=== PATIENT | female | born 1975 | race Caucasian/White ===

== ENCOUNTER 2023-11-28 15:13 | Emergency (ER) | payer OTHER ==
[2023-11-28 15:29] VITALS: BP 113/79; PULSE 100; RESP 17; TEMP 97.9; BMI 22.6
[2023-11-28 16:50] LABS: METHADONE, UR NEGATIVE (NEGATIVE); PHENCYCLIDINE,URINE NEGATIVE (NEGATIVE); URINE BARBITURATES NEGATIVE (NEGATIVE)
[2023-11-28 16:51] LABS: COCAINE, UR NEGATIVE (NEGATIVE); URINE AMPHETAMINES NEGATIVE (NEGATIVE)
[2023-11-28 16:56] LABS: OPIATES, URI NEGATIVE (NEGATIVE); URINE BENZODIAZEPINES POSITIVE (NEGATIVE)
[2023-11-28] MEDS ORDERED: chlordiazePOXIDE HCL 10 MG CAPSULE PO ONE (17:30)
[2023-11-28] MEDS ORDERED: chlordiazePOXIDE HCL 25 MG CAPSULE ONE (17:34)
[2023-11-28] MEDS: chlordiazePOXIDE HCL 25 MG CAPSULE PO ONE (17:59)
== END 2023-11-28 20:32 | disposition home or self-care (01) ==
LOC: JER 15:13
DX: S22.31XA Fracture of one rib, right side, initial encounter for closed fracture (principal); F10.129 Alcohol abuse with intoxication, unspecified; W10.9XXA Fall (on) (from) unspecified stairs and steps, initial encounter
CPT/HCPCS: 70450-TC; 71046-TC-FY; 72125-TC; 72170-TC-FY; 73030-TC-RT-FY; 73060-TC-RT-FY; 73070-TC-RT-FY; 80307; 99285-25

== ENCOUNTER 2024-01-28 12:17 | Emergency (ER) | payer OTHER ==
[2024-01-28 12:30] VITALS: BP 130/90; PULSE 101; RESP 18; TEMP 98.4; BMI 22.3
[2024-01-28] MEDS ORDERED: IBUPROFEN 600 MG TABLET (FP) PO ONE (13:54)
[2024-01-28] MEDS: IBUPROFEN 600 MG TABLET (FP) PO ONE (13:55)
[2024-01-28 15:48] LABS: HIV INTERPRETATION NEGATIVE (NEGATIVE)
== END 2024-01-28 14:57 | disposition home or self-care (01) ==
LOC: JERFT 12:17
DX: S50.01XA Contusion of right elbow, initial encounter (principal); W01.0XXA Fall on same level from slipping, tripping and stumbling without subsequent striking against object, initial encounter
CPT/HCPCS: 36415; 73070-TC-RT-FY; 86803; 87389; 99284-25

== ENCOUNTER 2024-04-14 15:27 | Inpatient (IN) | payer OTHER ==
[2024-04-14] MEDS ORDERED: ONDANSETRON 4 MG/2 ML VIAL ONE ×2 (16:09→19:57)
[2024-04-14] MEDS ORDERED: diazePAM CARPU-JECT 10 MG/2 ML DISP.SYRIN ONE (16:26)
[2024-04-14] MEDS ORDERED: FAMOTIDINE 20 MG/50 ML IVPB 20 MG/50 ML MG IVPB ONE (16:27)
[2024-04-14] MEDS ORDERED: ACETAMINOPHEN INJECTION 100 ML ONE (16:27)
[2024-04-14 16:31] LABS: HEMATOCRIT 40.5 % (32.4-45.2); HEMOGLOBIN 13.9 GM/dL (10.7-15.3); MCH 36.2 pg (25.7-33.7); MCHC 34.3 g/dl (32.0-36.0); MEAN CELL VOLUME 105.3 fl (80-96); MEAN PLT VOLUME 8.9 fl (7.5-11.1); PLATELET COUNT 122 10^3/uL (134-434); RBC 3.84 M/mm3 (3.60-5.2); WHITE BLOOD COUNT 8.9 K/mm3 (4.0-10.0)
[2024-04-14] MEDS: SODIUM CHLORIDE 0.9% 500 ML INFUS.BAG IV ONE (16:35)
[2024-04-14] MEDS: ACETAMINOPHEN 1000 MG/100 ML BAG IVPB ONE (16:35)
[2024-04-14 16:36] LABS: ADD RBC MORPHOLOGY YES
[2024-04-14] MEDS: ONDANSETRON 4 MG/2 ML VIAL IVPUSH ONE ×2 (16:36→19:55)
[2024-04-14] MEDS: FAMOTIDINE 20 MG/50 ML IVPB 20 MG/50 ML MG IVPB ONE (16:36)
[2024-04-14] MEDS: diazePAM CARPU-JECT 10 MG/2 ML DISP.SYRIN IVPUSH ONE (16:36)
[2024-04-14 16:55] LABS: POTASSIUM 3.2 mmol/L (3.5-5.1)
[2024-04-14 16:57] LABS: CALCIUM 8.5 mg/dL (8.5-10.1)
[2024-04-14 16:58] LABS: ALBUMIN 3.8 g/dl (3.4-5.0); BLOOD UREA NITROGEN 13.5 mg/dL (7-18)
[2024-04-14 17:01] LABS: CREATININE 0.7 mg/dL (0.55-1.3)
[2024-04-14 17:02] LABS: TOT PROT 6.9 g/dl (6.4-8.2)
[2024-04-14 17:37] LABS: ANISOCYTOSIS 0; MACROCYTOSIS 0
[2024-04-14] MEDS ORDERED: KCL 10 MEQ IVPB 10 MEQ/100 ML INFUS.BAG IVPB ONE ×3 (18:02→22:13)
[2024-04-14] MEDS: KCL 10 MEQ IVPB 10 MEQ/100 ML INFUS.BAG IVPB SCH ×2 (18:26→23:28)
[2024-04-14] MEDS: SODIUM CHLORIDE 1,000 ML IV ONE (18:37)
[2024-04-14] MEDS ORDERED: SODIUM CHLORIDE 1,000 ML IV SCH (18:45)
[2024-04-14 18:49] LABS: POTASSIUM 3.1 mmol/L (3.5-5.1)
[2024-04-14 18:51] LABS: BLOOD UREA NITROGEN 12.2 mg/dL (7-18); MAGNESIUM 1.2 mg/dL (1.8-2.4)
[2024-04-14 18:54] LABS: CREATININE 0.7 mg/dL (0.55-1.3)
[2024-04-14] MEDS ORDERED: MAGNESIUM SULFATE IN WATER 2 GM/50 ML IVPB IVPB ONE (20:15)
[2024-04-14] MEDS ORDERED: LORazepam 2 MG/ML SDV VIAL ONE (20:19)
[2024-04-14] MEDS: MAGNESIUM SULFATE IN WATER 2 GM/50 ML IVPB IVPB ONE (20:45)
[2024-04-14] MEDS ORDERED: KCL 10 MEQ IVPB 30 MEQ/300 ML INFUS.BAG IVPB ONE (23:22)
[2024-04-14] MEDS ORDERED: THIAMINE HCL 200 MG/2 ML VIAL ONE (23:22)
[2024-04-14] MEDS: THIAMINE HCL 200 MG/2 ML VIAL IVPB SCH (23:32)
[2024-04-15 00:06] LABS: PHOSPHOROUS 3.7 mg/dL (2.5-4.9)
[2024-04-15 01:08] LABS: HIV INTERPRETATION NEGATIVE (NEGATIVE)
[2024-04-15] MEDS: ONDANSETRON 4 MG/2 ML VIAL IVPUSH ONE (01:42)
[2024-04-15] MEDS: MAGNESIUM SULFATE IN WATER 2 GM/50 ML IVPB IVPB ONE (03:23)
[2024-04-15] MEDS: LACTATED RINGERS SOLUTION 1,000 ML/1,000 ML INFUS.BAG IV SCH ×2 (03:35→13:07)
[2024-04-15 07:38] LABS: BASO % 0.1 % (0-2.0); EOS % 0.1 % (0-4.5); HEMATOCRIT 34.9 % (32.4-45.2); HEMOGLOBIN 11.7 GM/dL (10.7-15.3); LYMPH % 10.4 % (8-40); MCH 36.2 pg (25.7-33.7); MCHC 33.7 g/dl (32.0-36.0); MEAN CELL VOLUME 107.4 fl (80-96); MEAN PLT VOLUME 9.2 fl (7.5-11.1); MONO % 5.9 % (3.8-10.2); NEUT % 83.5 % (42.8-82.8); PLATELET COUNT 80 10^3/uL (134-434); RBC 3.25 M/mm3 (3.60-5.2); RDW 14.2 % (11.6-15.6); WHITE BLOOD COUNT 4.8 K/mm3 (4.0-10.0)
[2024-04-15 08:06] LABS: CHLORIDE 89 mmol/L (98-107); SODIUM 127 mmol/L (136-145)
[2024-04-15 08:19] LABS: POTASSIUM 2.8 mmol/L (3.5-5.1)
[2024-04-15 08:26] LABS: CALCIUM 8.2 mg/dL (8.5-10.1)
[2024-04-15 08:27] LABS: ALBUMIN 3.3 g/dl (3.4-5.0); ANION GAP 13 mmol/L (4-13); BLOOD UREA NITROGEN 8.1 mg/dL (7-18); CO2 25 mmol/L (21-32); GLUCOSE,RANDOM 91 mg/dL (74-106); MAGNESIUM 3.2 mg/dL (1.8-2.4)
[2024-04-15 08:29] LABS: PHOSPHOROUS 2.2 mg/dL (2.5-4.9); SGPT/ALT 31 U/L (13-61)
[2024-04-15 08:30] LABS: CREATININE 0.6 mg/dL (0.55-1.3); SGOT/AST 258 U/L (15-37)
[2024-04-15 08:31] LABS: BILIRUBIN,TOTAL 1.3 mg/dL (0.2-1); TOT PROT 5.9 g/dl (6.4-8.2)
[2024-04-15 08:32] LABS: ALK PHOS 106 U/L (45-117)
[2024-04-15] MEDS: METOCLOPRAMIDE HCL 10 MG TABLET (FP) PO SCH ×2 (09:44→21:27)
[2024-04-15] MEDS: FOLIC ACID 1 MG TABLET (FP) PO SCH (09:44)
[2024-04-15] MEDS: ENOXAPARIN NA (PORCINE) 40 MG/0.4 ML DISP.SYRIN SQ SCH (09:44)
[2024-04-15] MEDS: POTASSIUM CHLORIDE TABS 20 MEQ TABLET.ER (FP) PO ONE (10:46)
[2024-04-15] MEDS: KCL 10 MEQ IVPB 10 MEQ/100 ML INFUS.BAG IVPB SCH ×2 (10:46→16:42)
[2024-04-15] MEDS ORDERED: LORazepam 1 MG TABLET PO PRN ×2 (11:50→17:17)
[2024-04-15 12:19] LABS: BILIRUBIN,DIRECT 0.5 mg/dL (0.0-0.2)
[2024-04-15 12:20] LABS: CHOLESTEROL 171 mg/dL (50-200); LDL CHOLESTEROL (ONLY SJRH) 77 mg/dL (5-100)
[2024-04-15 12:22] LABS: HDL CHOLESTEROL 67 mg/dL (40-60)
[2024-04-15] MEDS: LORazepam 1 MG TABLET PO SCH (13:03)
[2024-04-15 13:34] VITALS: BMI 22.8
[2024-04-15 15:05] LABS: CHLORIDE 89 mmol/L (98-107); SODIUM 127 mmol/L (136-145)
[2024-04-15 15:08] LABS: ALBUMIN 3.8 g/dl (3.4-5.0); CALCIUM 8.4 mg/dL (8.5-10.1); CO2 26 mmol/L (21-32); GLUCOSE,RANDOM 137 mg/dL (74-106)
[2024-04-15 15:11] LABS: SGOT/AST 254 U/L (15-37); SGPT/ALT 33 U/L (13-61)
[2024-04-15 15:12] LABS: CREATININE 0.9 mg/dL (0.55-1.3)
[2024-04-15 15:13] LABS: BILIRUBIN,TOTAL 1.2 mg/dL (0.2-1); TOT PROT 6.5 g/dl (6.4-8.2)
[2024-04-15 15:14] LABS: ALK PHOS 119 U/L (45-117)
[2024-04-15 15:30] LABS: ANION GAP 12 mmol/L (4-13); POTASSIUM 2.9 mmol/L (3.5-5.1)
[2024-04-15] MEDS ORDERED: LORazepam 2 MG/ML SDV VIAL IVPUSH PRN (17:17)
[2024-04-15] MEDS: POTASSIUM CHLORIDE ORAL LIQUID 20 MEQ/15 ML PO ONE (18:37)
[2024-04-15] MEDS: SERTRALINE HCL 25 MG TABLET (FP) PO SCH (21:39)
[2024-04-16 08:34] LABS: HEMATOCRIT 36.1 % (32.4-45.2); HEMOGLOBIN 12.3 GM/dL (10.7-15.3); MCH 36.8 pg (25.7-33.7); MEAN CELL VOLUME 108.4 fl (80-96); MEAN PLT VOLUME 9.6 fl (7.5-11.1); PLATELET COUNT 87 10^3/uL (134-434); RBC 3.33 M/mm3 (3.60-5.2); RDW 14.1 % (11.6-15.6); WHITE BLOOD COUNT 2.6 K/mm3 (4.0-10.0)
[2024-04-16 08:48] LABS: CHLORIDE 98 mmol/L (98-107); POTASSIUM 3.2 mmol/L (3.5-5.1); SODIUM 134 mmol/L (136-145)
[2024-04-16 09:02] LABS: ALBUMIN 3.3 g/dl (3.4-5.0); ANION GAP 9 mmol/L (4-13); CALCIUM 8.2 mg/dL (8.5-10.1); CO2 27 mmol/L (21-32); SGOT/AST 216 U/L (15-37)
[2024-04-16 09:03] LABS: GLUCOSE,RANDOM 91 mg/dL (74-106); MAGNESIUM 2.1 mg/dL (1.8-2.4)
[2024-04-16 09:05] LABS: ALK PHOS 106 U/L (45-117); SGPT/ALT 28 U/L (13-61)
[2024-04-16 09:06] LABS: CREATININE 0.6 mg/dL (0.55-1.3)
[2024-04-16 09:07] LABS: TOT PROT 5.8 g/dl (6.4-8.2)
[2024-04-16 09:16] LABS: BILIRUBIN,TOTAL 1.2 mg/dL (0.2-1); BLOOD UREA NITROGEN 2.1 mg/dL (7-18)
[2024-04-16] MEDS: POTASSIUM CHLORIDE TABS 20 MEQ TABLET.ER (FP) PO ONE (09:35)
[2024-04-16 10:20] LABS: ANISOCYTOSIS 0; MACROCYTOSIS 1+
[2024-04-16 20:50] LABS: POTASSIUM 3.3 mmol/L (3.5-5.1)
[2024-04-16 20:51] LABS: MAGNESIUM 1.7 mg/dL (1.8-2.4)
[2024-04-16] MEDS: POTASSIUM CHLORIDE ORAL LIQUID 20 MEQ/15 ML PO ONE (21:33)
[2024-04-16] MEDS: MAG HYDROX/AL HYDROX/SIMETH 30 ML UNIT-DOSE CUP PO ONE (21:33)
[2024-04-17] MEDS: LORazepam 1 MG TABLET PO SCH (05:42)
[2024-04-17 06:47] LABS: BASO % 0.4 % (0-2.0); EOS % 2.8 % (0-4.5); HEMATOCRIT 35.3 % (32.4-45.2); HEMOGLOBIN 11.9 GM/dL (10.7-15.3); LYMPH % 28.9 % (8-40); MCH 36.8 pg (25.7-33.7); MCHC 33.7 g/dl (32.0-36.0); MEAN CELL VOLUME 109.3 fl (80-96); MEAN PLT VOLUME 9.4 fl (7.5-11.1); MONO % 7.6 % (3.8-10.2); NEUT % 60.3 % (42.8-82.8); PLATELET COUNT 89 10^3/uL (134-434); RBC 3.23 M/mm3 (3.60-5.2); RDW 14.3 % (11.6-15.6); WHITE BLOOD COUNT 2.9 K/mm3 (4.0-10.0)
[2024-04-17 06:57] LABS: INR 0.88 (0.83-1.09); PROTHROMBIN TIME (PATIENT) 10.2 SEC (9.7-13.0)
[2024-04-17 07:09] LABS: POTASSIUM 3.7 mmol/L (3.5-5.1)
[2024-04-17 07:12] LABS: ALBUMIN 3.1 g/dl (3.4-5.0); CALCIUM 8.3 mg/dL (8.5-10.1)
[2024-04-17 07:13] LABS: BLOOD UREA NITROGEN 3.2 mg/dL (7-18); MAGNESIUM 1.6 mg/dL (1.8-2.4)
[2024-04-17 07:15] LABS: CREATININE 0.5 mg/dL (0.55-1.3)
[2024-04-17 07:16] LABS: PHOSPHOROUS 2.8 mg/dL (2.5-4.9)
[2024-04-17 07:17] LABS: BILIRUBIN,TOTAL 0.9 mg/dL (0.2-1); TOT PROT 5.5 g/dl (6.4-8.2)
[2024-04-17] MEDS: ACETAMINOPHEN 1000 MG/100 ML BAG IVPB ONE (15:20)
[2024-04-17] MEDS: POTASSIUM CHLORIDE ORAL LIQUID 20 MEQ/15 ML PO ONE (15:37)
[2024-04-17] MEDS: MAGNESIUM 2GM/50ML STERILE WATER IVPB IVPB ONE (15:37)
[2024-04-17 19:07] LABS: GLIADIN ANTIBODY IGA 53 units (0-19); GLIADIN ANTIBODY IGG 2 units (0-19); TRANSGLUTAMINASE IGG < 2 U/mL (0-5)
[2024-04-18] MEDS ORDERED: LORazepam 0.5 MG TABLET PO PRN
[2024-04-18] MEDS: TRIMETHOBENZAMIDE HCL 200MG/2ML INJ IM ONE (05:49)
[2024-04-18] MEDS: LORazepam 0.5 MG TABLET PO SCH (06:00)
[2024-04-18 07:34] LABS: BASO % 0.5 % (0-2.0); EOS % 2.7 % (0-4.5); HEMATOCRIT 34.2 % (32.4-45.2); HEMOGLOBIN 11.4 GM/dL (10.7-15.3); MCH 36.5 pg (25.7-33.7); MCHC 33.2 g/dl (32.0-36.0); MEAN CELL VOLUME 110.1 fl (80-96); MEAN PLT VOLUME 8.9 fl (7.5-11.1); MONO % 11.5 % (3.8-10.2); NEUT % 51.3 % (42.8-82.8); PLATELET COUNT 114 10^3/uL (134-434); RBC 3.11 M/mm3 (3.60-5.2); RDW 14.8 % (11.6-15.6); WHITE BLOOD COUNT 2.4 K/mm3 (4.0-10.0)
[2024-04-18 07:55] LABS: POTASSIUM 3.9 mmol/L (3.5-5.1)
[2024-04-18 07:57] LABS: CALCIUM 8.4 mg/dL (8.5-10.1)
[2024-04-18 07:58] LABS: BLOOD UREA NITROGEN 4.4 mg/dL (7-18); MAGNESIUM 1.9 mg/dL (1.8-2.4)
[2024-04-18 08:01] LABS: CREATININE 0.5 mg/dL (0.55-1.3); PHOSPHOROUS 3.4 mg/dL (2.5-4.9)
[2024-04-18 08:02] LABS: BILIRUBIN,TOTAL 0.4 mg/dL (0.2-1); TOT PROT 5.7 g/dl (6.4-8.2)
[2024-04-18 11:58] LABS: ANISOCYTOSIS 1+; MACROCYTOSIS 2+
[2024-04-18] MEDS: BISACODYL 5 MG TABLET.DR (FP) PO ONE (17:12)
[2024-04-18] MEDS: PEG 3350/NA SULF BICARB CL/KCL 4000 ML SOLN.RECON PO ONE (17:52)
[2024-04-19] MEDS: LORazepam 0.5 MG TABLET PO ONE (05:45)
[2024-04-19 13:36] LABS: HEMATOCRIT 33.6 % (32.4-45.2); HEMOGLOBIN 11.3 GM/dL (10.7-15.3); MCHC 33.6 g/dl (32.0-36.0); MEAN PLT VOLUME 8.1 fl (7.5-11.1); PLATELET COUNT 159 10^3/uL (134-434); RBC 3.05 M/mm3 (3.60-5.2); WHITE BLOOD COUNT 2.7 K/mm3 (4.0-10.0)
[2024-04-19 14:04] LABS: POTASSIUM 3.7 mmol/L (3.5-5.1)
[2024-04-19 14:05] LABS: BLOOD UREA NITROGEN 4.4 mg/dL (7-18); CALCIUM 8.7 mg/dL (8.5-10.1)
[2024-04-19 14:06] LABS: ALBUMIN 2.9 g/dl (3.4-5.0)
[2024-04-19 14:08] LABS: MAGNESIUM 1.7 mg/dL (1.8-2.4)
[2024-04-19 14:09] LABS: CREATININE 0.5 mg/dL (0.55-1.3); PHOSPHOROUS 4.5 mg/dL (2.5-4.9)
[2024-04-19 14:11] LABS: BILIRUBIN,TOTAL 0.4 mg/dL (0.2-1); TOT PROT 5.4 g/dl (6.4-8.2)
[2024-04-19] MEDS: MAGNESIUM SULF 50% (8.12 MEQ/2 ML-1 GM VIAL) IVPB ONE (15:51)
[2024-04-20] MEDS: METOCLOPRAMIDE HCL INJECTION 10 MG/2 ML VIAL IVPUSH ONE (00:06)
[2024-04-20 07:39] LABS: HEMOGLOBIN 11.4 GM/dL (10.7-15.3); MCH 36.9 pg (25.7-33.7); MCHC 33.6 g/dl (32.0-36.0); MEAN CELL VOLUME 109.8 fl (80-96); MEAN PLT VOLUME 8.2 fl (7.5-11.1); PLATELET COUNT 204 10^3/uL (134-434); RBC 3.09 M/mm3 (3.60-5.2); RDW 15.1 % (11.6-15.6); WHITE BLOOD COUNT 6.1 K/mm3 (4.0-10.0)
[2024-04-20 08:01] LABS: POTASSIUM 4.1 mmol/L (3.5-5.1)
[2024-04-20 08:08] LABS: BLOOD UREA NITROGEN 6.2 mg/dL (7-18); MAGNESIUM 2.1 mg/dL (1.8-2.4)
[2024-04-20 08:11] LABS: CREATININE 0.6 mg/dL (0.55-1.3)
[2024-04-20 08:12] LABS: BILIRUBIN,TOTAL 0.4 mg/dL (0.2-1); TOT PROT 5.9 g/dl (6.4-8.2)
[2024-04-20] MEDS: PANTOPRAZOLE 40 MG TABLET PO SCH (09:16)
[2024-04-20] MEDS: ONDANSETRON 4 MG/2 ML VIAL IVPUSH PRN (09:46)
[2024-04-20] MEDS ORDERED: ONDANSETRON 4 MG/2 ML VIAL IVPUSH PRN (18:14)
[2024-04-20] MEDS ORDERED: LORazepam 2 MG/ML SDV VIAL IVPUSH PRN (20:19)
[2024-04-20] MEDS ORDERED: ACETAMINOPHEN 325 MG TABLET (FP) PO ONE (20:29)
[2024-04-20] MEDS: LORazepam 2 MG/ML SDV VIAL IVPUSH ONE (20:36)
[2024-04-20] MEDS: LACTOBACILLUS ACIDOPHILUS 1 TABLET PO SCH ×2 (20:37→20:44)
[2024-04-20] MEDS: ACETAMINOPHEN 325 MG TABLET (FP) PO ONE (20:37)
[2024-04-20 22:47] LABS: PH,URINE 5.5 (5.0-8.0); URINE APPEARANCE CLEAR; URINE BILIRUBIN NEGATIVE (NEGATIVE); URINE COLOR YELLOW; URINE GLUCOSE (UA) 2+ (NEGATIVE); URINE KETONE TRACE (NEGATIVE); URINE LEUK ESTERASE NEGATIVE (NEGATIVE); URINE NITRITE NEGATIVE (NEGATIVE); URINE PROTEIN NEGATIVE (NEGATIVE)
[2024-04-20 22:54] LABS: COCAINE, UR NEGATIVE (NEGATIVE); OPIATES, URI NEGATIVE (NEGATIVE); URINE BARBITURATES NEGATIVE (NEGATIVE)
[2024-04-21 01:40] LABS: METHADONE, UR NEGATIVE (NEGATIVE); URINE AMPHETAMINES NEGATIVE (NEGATIVE)
[2024-04-21 01:41] LABS: PHENCYCLIDINE,URINE NEGATIVE (NEGATIVE); URINE BENZODIAZEPINES POSITIVE (NEGATIVE)
[2024-04-21 07:47] LABS: POTASSIUM 4.2 mmol/L (3.5-5.1)
[2024-04-21 07:49] LABS: HEMATOCRIT 32.2 % (32.4-45.2); HEMOGLOBIN 10.8 GM/dL (10.7-15.3); MCH 36.9 pg (25.7-33.7); MCHC 33.6 g/dl (32.0-36.0); MEAN CELL VOLUME 109.7 fl (80-96); MEAN PLT VOLUME 8.1 fl (7.5-11.1); PLATELET COUNT 236 10^3/uL (134-434); RBC 2.94 M/mm3 (3.60-5.2); RDW 15.1 % (11.6-15.6); WHITE BLOOD COUNT 5.7 K/mm3 (4.0-10.0)
[2024-04-21 08:04] LABS: CALCIUM 8.9 mg/dL (8.5-10.1)
[2024-04-21 08:06] LABS: BLOOD UREA NITROGEN 5.2 mg/dL (7-18); MAGNESIUM 2.1 mg/dL (1.8-2.4)
[2024-04-21 08:09] LABS: BILIRUBIN,TOTAL 0.4 mg/dL (0.2-1); CREATININE 0.5 mg/dL (0.55-1.3); PHOSPHOROUS 4.6 mg/dL (2.5-4.9)
[2024-04-21 08:10] LABS: TOT PROT 5.6 g/dl (6.4-8.2)
[2024-04-21] MEDS: ACETAMINOPHEN 500 MG TABLET (FP) PO ONE (12:28)
[2024-04-21] MEDS: LORazepam 1 MG TABLET PO ONE (13:35)
[2024-04-22 08:41] LABS: POTASSIUM 4.2 mmol/L (3.5-5.1)
[2024-04-22 08:58] LABS: CALCIUM 8.9 mg/dL (8.5-10.1)
[2024-04-22 08:59] LABS: ALBUMIN 2.9 g/dl (3.4-5.0); BLOOD UREA NITROGEN 8.6 mg/dL (7-18)
[2024-04-22 09:01] LABS: MAGNESIUM 1.9 mg/dL (1.8-2.4)
[2024-04-22 09:02] LABS: CREATININE 0.6 mg/dL (0.55-1.3)
[2024-04-22 09:04] LABS: BILIRUBIN,TOTAL 0.3 mg/dL (0.2-1); TOT PROT 5.8 g/dl (6.4-8.2)
[2024-04-22 09:15] LABS: HEMATOCRIT 34.8 % (32.4-45.2); HEMOGLOBIN 11.6 GM/dL (10.7-15.3); MCH 36.8 pg (25.7-33.7); MCHC 33.4 g/dl (32.0-36.0); MEAN PLT VOLUME 8.2 fl (7.5-11.1); PLATELET COUNT 255 10^3/uL (134-434); RBC 3.16 M/mm3 (3.60-5.2); WHITE BLOOD COUNT 4.1 K/mm3 (4.0-10.0)
[2024-04-22 12:21] VITALS: RESP 14
[2024-04-22 12:22] VITALS: BP 108/96; PULSE 92; TEMP 98.6
[2024-04-28 12:09] LABS: VASOACTIVE INTEST, POLYPEPTIDE 43.6 pg/mL (0.0-58.8)
== END 2024-04-22 12:30 | disposition home or self-care (01) | DRG 775 ==
LOC: JER 15:27 → JERBED 18:45 → J4W 04-15 00:56 → OBSVTOIN 04-15 09:34
PROVIDERS: ADMIT Internal Medicine; ATTEND Internal Medicine
PROC: 0DB98ZX Excision of Duodenum, Via Natural or Artificial Opening Endoscopic, Diagnostic (ICD-10-PCS; 2024-04-19)
PROC: 0DB68ZX Excision of Stomach, Via Natural or Artificial Opening Endoscopic, Diagnostic (ICD-10-PCS; 2024-04-19)
PROC: 0DB58ZX Excision of Esophagus, Via Natural or Artificial Opening Endoscopic, Diagnostic (ICD-10-PCS; 2024-04-19)
PROC: 0DBN8ZZ Excision of Sigmoid Colon, Via Natural or Artificial Opening Endoscopic (ICD-10-PCS; principal; 2024-04-19 13:30)
DX: F10.239 Alcohol dependence with withdrawal, unspecified (principal); K86.0 Alcohol-induced chronic pancreatitis; K70.40 Alcoholic hepatic failure without coma; E83.42 Hypomagnesemia; K29.90 Gastroduodenitis, unspecified, without bleeding; K25.9 Gastric ulcer, unspecified as acute or chronic, without hemorrhage or perforation; E87.1 Hypo-osmolality and hyponatremia; K21.9 Gastro-esophageal reflux disease without esophagitis; E87.6 Hypokalemia; R11.2 Nausea with vomiting, unspecified; K64.8 Other hemorrhoids; D12.5 Benign neoplasm of sigmoid colon; R56.9 Unspecified convulsions; F41.8 Other specified anxiety disorders; K52.9 Noninfective gastroenteritis and colitis, unspecified; R79.89 Other specified abnormal findings of blood chemistry; E43 Unspecified severe protein-calorie malnutrition; Z68.22 Body mass index [BMI] 22.0-22.9, adult
CPT/HCPCS: 36415; 70450-TC; 70551-TC; 71045-TC-FY; 74177-TC; 76705-TC; 80048; 80053; 80061; 80307; 81003; 82248; 82550; 82784; 82941; 83516; 83690; 83735; 83986; 84100; 84132; 84260; 84436; 84443; 84484; 84586; 84703; 84999; 85025; 85027; 85610; 86140; 86704; 86708; 86803; 87045; 87046; 87086; 87186; 87205; 87209; 87324; 87340; 87389; 87449; 87517; 88305-TC; 88342-TC; 93005; 93010; 94761; 99285-25; G0378; J0131; Q9967

== ENCOUNTER 2024-05-03 00:49 | Inpatient (IN) | payer OTHER ==
[2024-05-03 01:06] VITALS: BMI 21.1
[2024-05-03] MEDS ORDERED: IBUPROFEN 400 MG TABLET (FP) PO PRN (01:29)
[2024-05-03] MEDS ORDERED: ACETAMINOPHEN 325 MG TABLET (FP) PO PRN (01:29)
[2024-05-03] MEDS ORDERED: guaiFENesin 600 MG TABLET.ER (FP) PO PRN (01:29)
[2024-05-03] MEDS ORDERED: DICYCLOMINE HCL 10 MG CAPSULE PO PRN (01:29)
[2024-05-03] MEDS ORDERED: MAG HYDROX/AL HYDROX/SIMETH 30 ML UNIT-DOSE CUP PO PRN (01:29)
[2024-05-03] MEDS ORDERED: IBUPROFEN 600 MG TABLET (FP) PO PRN (01:29)
[2024-05-03] MEDS ORDERED: BENZONATATE 200 MG CAPSULE PO PRN (01:29)
[2024-05-03] MEDS ORDERED: BENZOCAINE/MENTHOL (CHLORASEPTIC ) LOZENGE MM PRN (01:29)
[2024-05-03] MEDS ORDERED: MAGNESIUM HYDROX 2400MG/30ML ORAL SUSPENSION 30 ML CUP PO PRN (01:29)
[2024-05-03] MEDS ORDERED: NICOTINE POLACRILEX 2 MG LOZENGE BC PRN (01:29)
[2024-05-03] MEDS ORDERED: NALOXONE (NARCAN) HCL 4 MG/0.1 ML SPRAY NS PRN (01:29)
[2024-05-03] MEDS ORDERED: POLYETHYLENE GLYCOL (HEALTHYLAX) 3350 17 GM PACKET PO PRN (01:29)
[2024-05-03] MEDS ORDERED: LOPERAMIDE HCL 2 MG CAPSULE PO PRN (01:29)
[2024-05-03] MEDS ORDERED: chlordiazePOXIDE HCL 25 MG CAPSULE ONE (02:21)
[2024-05-03] MEDS ORDERED: METHOCARBAMOL 500 MG TABLET ONE (02:21)
[2024-05-03] MEDS: METHOCARBAMOL 500 MG TABLET PO PRN (02:28)
[2024-05-03] MEDS: chlordiazePOXIDE HCL 25 MG CAPSULE PO PRN (02:28)
[2024-05-03] MEDS: chlordiazePOXIDE HCL 25 MG CAPSULE PO SCH (05:45)
[2024-05-03] MEDS ORDERED: levETIRAcetam 500 MG TABLET (FP) PO SCH (10:45)
[2024-05-03] MEDS: NICOTINE 14 MG/24 HOURS TOPICAL PATCH TD SCH (10:55)
[2024-05-03] MEDS: PRENATAL VITAMINS W/ FOLIC ACID TABLET (FP) PO SCH (10:55)
[2024-05-03 11:39] LABS: HEMOGLOBIN 12.6 GM/dL (10.7-15.3); MCH 37.6 pg (25.7-33.7); MCHC 34.9 g/dl (32.0-36.0); MEAN CELL VOLUME 107.6 fl (80-96); MEAN PLT VOLUME 8.3 fl (7.5-11.1); PLATELET COUNT 346 10^3/uL (134-434); RBC 3.34 M/mm3 (3.60-5.2); RDW 15.2 % (11.6-15.6); WHITE BLOOD COUNT 5.6 K/mm3 (4.0-10.0)
[2024-05-03] MEDS: PANTOPRAZOLE 40 MG TABLET PO SCH (11:40)
[2024-05-03] MEDS: levETIRAcetam 500 MG TABLET (FP) PO SCH (11:41)
[2024-05-03] MEDS: ONDANSETRON *ODT* 4 MG TABLET SL PRN (11:43)
[2024-05-03] MEDS: FOLIC ACID 1 MG TABLET (FP) PO SCH (11:43)
[2024-05-03] MEDS: NALTREXONE HCL 50 MG TABLET PO SCH (11:48)
[2024-05-03 12:22] LABS: CHLORIDE 102 mmol/L (98-107); POTASSIUM 4.4 mmol/L (3.5-5.1); SODIUM 137 mmol/L (136-145)
[2024-05-03 12:24] LABS: CALCIUM 9.4 mg/dL (8.5-10.1); GLUCOSE,RANDOM 94 mg/dL (74-106)
[2024-05-03 12:25] LABS: ALBUMIN 3.5 g/dl (3.4-5.0); ANION GAP 7 mmol/L (4-13); CO2 28 mmol/L (21-32)
[2024-05-03 12:27] LABS: CREATININE 0.7 mg/dL (0.55-1.3)
[2024-05-03 12:28] LABS: SGOT/AST 67 U/L (15-37); SGPT/ALT 30 U/L (13-61)
[2024-05-03 12:29] LABS: BILIRUBIN,TOTAL 0.3 mg/dL (0.2-1); TOT PROT 6.5 g/dl (6.4-8.2)
[2024-05-03 12:30] LABS: ALK PHOS 86 U/L (45-117)
[2024-05-03] MEDS: BISMUTH SUBSALICYLATE 524 MG/30 ML PO PRN (16:13)
[2024-05-03] MEDS ORDERED: MELATONIN 5 MG TABLETS PO SCH (22:00)
[2024-05-03] MEDS: SUVOREXANT 10 MG TABLET PO PRN (22:21)
[2024-05-03] MEDS: ATORVASTATIN CA 40 MG TABLET (FP) PO SCH (22:21)
[2024-05-03] MEDS: SERTRALINE HCL 50 MG TABLET (FP) PO SCH (22:21)
[2024-05-03] MEDS: THIAMINE 100 MG TABLET PO SCH (22:22)
[2024-05-03] MEDS: LACTOBACILLUS ACIDOPHILUS 1 TABLET PO SCH (22:22)
[2024-05-04] MEDS: chlordiazePOXIDE HCL 25 MG CAPSULE PO SCH (05:45)
[2024-05-04] MEDS: hydrOXYzine PAMOATE 25 MG CAPSULE (FP) PO PRN (10:32)
[2024-05-05] MEDS ORDERED: chlordiazePOXIDE HCL 10 MG CAPSULE PO PRN
[2024-05-05] MEDS: chlordiazePOXIDE HCL 10 MG CAPSULE PO SCH (05:32)
[2024-05-06] MEDS: chlordiazePOXIDE HCL 10 MG CAPSULE PO SCH (05:55)
[2024-05-06 06:53] VITALS: PULSE 90
[2024-05-06 10:30] VITALS: BP 115/76; RESP 18; TEMP 97.7
[2024-05-06] MEDS: NALOXONE (NYS OPIOID OVERDOSE PROGRAM) 4 MG/0.1 ML SPRAY NS SCH (11:05)
[2024-05-07] MEDS ORDERED: chlordiazePOXIDE HCL 10 MG CAPSULE PO ONE (05:00)
== END 2024-05-06 09:40 | disposition home or self-care (01) | DRG 775 ==
LOC: YASAS 00:49 → Y6N 02:43
PROVIDERS: ADMIT Allergy & Immunology; ATTEND Surgery
PROC: HZ2ZZZZ Detoxification Services for Substance Abuse Treatment (ICD-10-PCS; principal; 2024-05-03)
DX: F10.230 Alcohol dependence with withdrawal, uncomplicated (principal); F17.210 Nicotine dependence, cigarettes, uncomplicated; F10.282 Alcohol dependence with alcohol-induced sleep disorder; F10.280 Alcohol dependence with alcohol-induced anxiety disorder; F10.24 Alcohol dependence with alcohol-induced mood disorder; F32.A Depression, unspecified; E78.5 Hyperlipidemia, unspecified; K21.9 Gastro-esophageal reflux disease without esophagitis; K29.20 Alcoholic gastritis without bleeding; R19.7 Diarrhea, unspecified
CPT/HCPCS: 36415; 70450-TC; 80053; 80307; 81003; 83690; 84703; 85025; 85027; 86780; 99285-25; Q0162

== ENCOUNTER 2024-08-30 14:17 | Inpatient (IN) | payer OTHER ==
[2024-08-30 15:01] VITALS: BMI 24.3
[2024-08-30] MEDS ORDERED: MAG HYDROX/AL HYDROX/SIMETH 30 ML UNIT-DOSE CUP PO PRN (16:17)
[2024-08-30] MEDS ORDERED: DICYCLOMINE HCL 10 MG CAPSULE PO PRN (16:17)
[2024-08-30] MEDS ORDERED: IBUPROFEN 600 MG TABLET (FP) PO PRN (16:17)
[2024-08-30] MEDS ORDERED: ACETAMINOPHEN 325 MG TABLET (FP) PO PRN (16:17)
[2024-08-30] MEDS ORDERED: METHOCARBAMOL 500 MG TABLET PO PRN (16:17)
[2024-08-30] MEDS ORDERED: BENZONATATE 200 MG CAPSULE PO PRN (16:17)
[2024-08-30] MEDS ORDERED: BISMUTH SUBSALICYLATE 524 MG/30 ML PO PRN (16:17)
[2024-08-30] MEDS ORDERED: MAGNESIUM HYDROX 2400MG/30ML ORAL SUSPENSION 30 ML CUP PO PRN (16:17)
[2024-08-30] MEDS ORDERED: hydrOXYzine PAMOATE 25 MG CAPSULE (FP) PO PRN (16:17)
[2024-08-30] MEDS ORDERED: chlordiazePOXIDE HCL 25 MG CAPSULE PO PRN (16:17)
[2024-08-30] MEDS ORDERED: ONDANSETRON *ODT* 4 MG TABLET SL PRN (16:17)
[2024-08-30] MEDS ORDERED: LOPERAMIDE HCL 2 MG CAPSULE PO PRN (16:17)
[2024-08-30] MEDS ORDERED: IBUPROFEN 400 MG TABLET (FP) PO PRN (16:17)
[2024-08-30] MEDS ORDERED: guaiFENesin 600 MG TABLET.ER (FP) PO PRN (16:17)
[2024-08-30] MEDS ORDERED: POLYETHYLENE GLYCOL (HEALTHYLAX) 3350 17 GM PACKET PO PRN (16:17)
[2024-08-30] MEDS ORDERED: BENZOCAINE/MENTHOL (CHLORASEPTIC ) LOZENGE MM PRN (16:17)
[2024-08-30] MEDS ORDERED: chlordiazePOXIDE HCL 25 MG CAPSULE ONE (18:24)
[2024-08-30] MEDS: chlordiazePOXIDE HCL 25 MG CAPSULE PO SCH (18:27)
[2024-08-30] MEDS: THIAMINE 100 MG TABLET PO SCH (22:31)
[2024-08-30] MEDS: MELATONIN 5 MG TABLETS PO SCH (22:31)
[2024-08-31 09:02] VITALS: BP 146/100; PULSE 112; RESP 18; TEMP 97.3
[2024-08-31] MEDS: NALOXONE (NARCAN) HCL 4 MG/0.1 ML SPRAY NS PRN (09:36)
[2024-08-31] MEDS ORDERED: FAMOTIDINE 20 MG TABLET PO SCH (10:00)
[2024-08-31] MEDS ORDERED: PRENATAL VITAMINS W/ FOLIC ACID TABLET (FP) PO SCH (10:00)
[2024-08-31 11:39] LABS: CHLORIDE 104 mmol/L (98-107); HEMATOCRIT 40.8 % (34.1-44.9); HEMOGLOBIN 13.7 g/dL (11.2-15.7); MCHC 33.6 g/dl (32.2-35.5); MEAN CELL VOLUME 98.3 fl (79.4-94.8); MEAN PLT VOLUME 10.6 fl (9.4-12.3); PLATELET COUNT 209 x10^3/uL (182-369); POTASSIUM 4.6 mmol/L (3.5-5.1); RDW 12.1 % (12.3-16.6); SODIUM 137 mmol/L (136-145)
[2024-08-31 11:43] LABS: ALBUMIN 3.7 g/dl (3.4-5.0); BLOOD UREA NITROGEN 14.8 mg/dL (7-18); CALCIUM 9.2 mg/dL (8.5-10.1)
[2024-08-31 11:44] LABS: ANION GAP 14 mmol/L (4-13); CO2 20 mmol/L (21-32); GLUCOSE,RANDOM 98 mg/dL (74-106)
[2024-08-31 11:46] LABS: CREATININE 0.9 mg/dL (0.55-1.3); SGOT/AST 123 U/L (15-37)
[2024-08-31 11:47] LABS: BILIRUBIN,TOTAL 0.7 mg/dL (0.2-1)
[2024-08-31 11:48] LABS: CHOLESTEROL 204 mg/dL (50-200)
[2024-08-31 11:49] LABS: ALK PHOS 103 U/L (45-117)
[2024-08-31 11:50] LABS: LDL CHOLESTEROL (ONLY SJRH) 40 mg/dL (5-100)
[2024-08-31 11:51] LABS: HDL CHOLESTEROL 28 mg/dL (40-60)
[2024-08-31 11:54] LABS: SGPT/ALT 37 U/L (13-61)
[2024-09-01] MEDS ORDERED: chlordiazePOXIDE HCL 25 MG CAPSULE PO SCH (05:00)
[2024-09-02] MEDS ORDERED: chlordiazePOXIDE HCL 10 MG CAPSULE PO PRN
[2024-09-02] MEDS ORDERED: chlordiazePOXIDE HCL 10 MG CAPSULE PO SCH (05:00)
[2024-09-03] MEDS ORDERED: chlordiazePOXIDE HCL 10 MG CAPSULE PO SCH (05:00)
[2024-09-04] MEDS ORDERED: chlordiazePOXIDE HCL 10 MG CAPSULE PO ONE (05:00)
== END 2024-08-31 09:25 | disposition left against medical advice (07) | DRG 770 ==
LOC: YASAS 14:17 → Y3N 18:22
PROVIDERS: ADMIT Allergy & Immunology; ATTEND Allergy & Immunology
PROC: HZ2ZZZZ Detoxification Services for Substance Abuse Treatment (ICD-10-PCS; principal; 2024-08-30)
DX: F10.230 Alcohol dependence with withdrawal, uncomplicated (principal); F32.A Depression, unspecified; G47.00 Insomnia, unspecified; M54.50 Low back pain, unspecified; G89.29 Other chronic pain; Z72.0 Tobacco use; Z87.19 Personal history of other diseases of the digestive system; Z59.00 Homelessness unspecified
CPT/HCPCS: 36415; 80053; 80061; 80305; 80307; 81025; 83690; 83735; 85025; 85027; 86780; 93005; 93010; 99283-25